=== PATIENT | female | born 1940 | race Caucasian/White ===

== ENCOUNTER 2020-08-24 16:00 | Inpatient (IN) | payer MEDICARE, OTHER ==
[~2020-08-24] VITALS: Ht 152.4 cm; Wt 41.3 kg
[~2020-08-24 16:00] MED LIST: CARBIDOPA-LEVO1 EA14 PO; COLACE 100MG C100 MG PO; DOXYCYCLINE HY100 MG PO; LACTULOSE10 GM/151 PO; LISINOPRIL-HCT1 EACH PO; LISINOPRIL5 MG PO; LORTAB 5-325 M1 EACH PO; NEURONTIN 100100 MG PO; ROPINIROLE HCL1 MG PO; SENNA LAX8.6 MG PO; VENTOLIN HFA 66.7 GM INH
[2020-08-24 20:00] LABS: HEMOGLOBIN 14.3 gm/dl (12.3-15.3); RED BLOOD COUNT 4.95 M/UL (4.00-5.10); WHITE BLOOD COUNT 8.5 K/UL (4.5-11.0)
[2020-08-24 20:19] LABS: BUN/CREATININE RATIO 21 (0-10)
[2020-08-24] MEDS ORDERED: FAMOTIDINE20 MG PO (20:54)
[2020-08-24] MEDS ORDERED: LOPRESSOR 25 MG25 MG PO (20:56)
[2020-08-24] MEDS ORDERED: TYLENOL PM EX-1 EACH PO (20:57)
[2020-08-24] MEDS ORDERED: TYLENOL EXTRA500 MG PO ×2 (20:58→20:59)
[2020-08-24] MEDS ORDERED: LISINOPRIL10 MG PO (21:00)
[2020-08-24] MEDS ORDERED: DAILY VITAMIN1 EAC2 PO (21:02)
[2020-08-24] MEDS ORDERED: VITAMIN D350 MCG PO (21:03)
[2020-08-24] MEDS ORDERED: COQ-1030 MG PO (21:07)
[2020-08-26 06:33] LABS: HEMOGLOBIN 14.2 gm/dl (12.3-15.3); RED BLOOD COUNT 4.97 M/UL (4.00-5.10); WHITE BLOOD COUNT 8.2 K/UL (4.5-11.0)
[2020-08-26 07:20] LABS: BUN/CREATININE RATIO 23 (0-10)
[2020-08-27 04:32] LABS: HEMOGLOBIN 13.5 gm/dl (12.3-15.3); RED BLOOD COUNT 4.85 M/UL (4.00-5.10); WHITE BLOOD COUNT 8.1 K/UL (4.5-11.0)
[2020-08-27 04:54] LABS: BUN/CREATININE RATIO 29 (0-10)
[2020-08-28 06:24] LABS: HEMOGLOBIN 14.3 gm/dl (12.3-15.3); RED BLOOD COUNT 4.97 M/UL (4.00-5.10)
[2020-08-28 06:28] LABS: WHITE BLOOD COUNT 11.7 K/UL (4.5-11.0)
[2020-08-28 07:11] LABS: BUN/CREATININE RATIO 30 (0-10)
[2020-08-29 03:37] LABS: WHITE BLOOD COUNT 10.6 K/UL (4.5-11.0)
[2020-08-29 03:54] LABS: HEMOGLOBIN 11.6 gm/dl (12.3-15.3); RED BLOOD COUNT 4.12 M/UL (4.00-5.10)
[2020-08-30 03:22] LABS: HEMOGLOBIN 10.1 gm/dl (12.3-15.3); RED BLOOD COUNT 3.6 M/UL (4.00-5.10); WHITE BLOOD COUNT 15.4 K/UL (4.5-11.0)
[2020-08-30 03:35] LABS: BUN/CREATININE RATIO 40 (0-10)
[2020-08-31 03:47] LABS: HEMOGLOBIN 10.2 gm/dl (12.3-15.3); RED BLOOD COUNT 3.55 M/UL (4.00-5.10)
[2020-08-31 03:50] LABS: WHITE BLOOD COUNT 24.9 K/UL (4.5-11.0)
[2020-08-31 04:08] LABS: BUN/CREATININE RATIO 50 (0-10)
[2020-09-01 04:19] LABS: HEMOGLOBIN 9.5 gm/dl (12.3-15.3); RED BLOOD COUNT 3.38 M/UL (4.00-5.10); WHITE BLOOD COUNT 19.2 K/UL (4.5-11.0)
[2020-09-01 04:35] LABS: BUN/CREATININE RATIO 42 (0-10)
[2020-09-02 06:03] LABS: RED BLOOD COUNT 3.54 M/UL (4.00-5.10)
[2020-09-02 06:23] LABS: BUN/CREATININE RATIO 42 (0-10)
[2020-09-02] MEDS ORDERED: SODIUM BICARBO650 M1 PO (11:03)
[2020-09-02] MEDS ORDERED: ENOXAPARIN40 MG/0.4 SC (11:03)
[2020-09-02] MEDS ORDERED: AUGMENTIN 875-1 EACH PO (11:06)
[2020-09-02] MEDS ORDERED: MEGACE 400400 MG/10 PO (11:06)
== END 2020-09-02 14:50 | DRG 500 ==
LOC: ER1 16:00 → MED SURG 4 20:56 → CDU 20:56 → MED SURG 4 21:55
PROVIDERS: Internal Medicine; Orthopaedic Surgery; Physician Assistant; ADMIT Internal Medicine
PROC: 0KNN0ZZ Release Right Hip Muscle, Open Approach (ICD-10-PCS; 2020-08-28)
PROC: 0KNP0ZZ Release Left Hip Muscle, Open Approach (ICD-10-PCS; principal; 2020-08-28 10:23)
DX: T84.020A Dislocation of internal right hip prosthesis, initial encounter (principal); E43 Unspecified severe protein-calorie malnutrition; R53.2 Functional quadriplegia; N39.0 Urinary tract infection, site not specified; N17.9 Acute kidney failure, unspecified; Z68.1 Body mass index [BMI] 19.9 or less, adult; M24.551 Contracture, right hip; Z20.822 Contact with and (suspected) exposure to COVID-19; G20 Parkinson's disease; I11.0 Hypertensive heart disease with heart failure; I50.9 Heart failure, unspecified; E86.0 Dehydration; B96.1 Klebsiella pneumoniae [K. pneumoniae] as the cause of diseases classified elsewhere; F03.90 Unspecified dementia, unspecified severity, without behavioral disturbance, psychotic disturbance, mood disturbance, and anxiety; M24.552 Contracture, left hip; Y83.8 Other surgical procedures as the cause of abnormal reaction of the patient, or of later complication, without mention of misadventure at the time of the procedure; D63.8 Anemia in other chronic diseases classified elsewhere; R53.81 Other malaise; R62.7 Adult failure to thrive; Z96.643 Presence of artificial hip joint, bilateral; Z90.49 Acquired absence of other specified parts of digestive tract; Z74.01 Bed confinement status
CPT/HCPCS: 36415; 71045; 72131; 73502; 73700; 76000; 80048; 80053; 81001; 82550; 82553; 82962; 84439; 84443; 84484; 85025; 85027; 86140; 87040; 87077; 87086; 87186; 96365; 97110-GP-CQ; 97161; 97167; 97530-GP-CQ; 99285; J0360; J0690; J0696; J1650; J2001; J2704; J3010; J7030; J7120; U0002